=== PATIENT | male | born 2000 ===

== ENCOUNTER 2025-02-01 12:02 | Outpatient (CLI) | payer BC ==
[2025-02-01 12:46] LABS: Albumin 4.7 g/dL (3.2-4.8); Alkaline Phosphatase 95 U/L (46-116); Anion Gap 8 (5-15); BUN/Creatinine Ratio 12.1 (10.0-20.0); Blood Urea Nitrogen 13 mg/dL (9-23); Calcium 9.5 mg/dL (8.7-10.4); Carbon Dioxide 27 mmol/L (20-31); Chloride 104 mmol/L (98-107); Cholesterol 153 mg/dL (< 200); Glucose 91 mg/dL (74-106); HDL Cholesterol 46 mg/dL (40-59); Potassium 4.3 mmol/L (3.5-5.1); Sodium 139 mmol/L (136-145); Total Protein 7.5 g/dL (5.7-8.2); Triglycerides 88 mg/dL (< 150)
[2025-02-01 12:50] LABS: Alanine Aminotransferase 157 U/L (7-40); Bilirubin, Total 1.7 mg/dL (0.2-1.0)
[2025-02-01 13:41] LABS: Hematocrit 43.2 % (41.0-53.0); Hemoglobin 15.1 g/dL (13.5-17.5); Mean Corpuscular Hemoglobin 30.7 pg (28.0-32.0); Mean Corpuscular Volume 88.0 fL (80.0-100.0)
[2025-02-01 14:18] LABS: Hepatitis A Total Antibody Positive (Negative); Hepatitis B Surface Antigen Negative (Negative); Hepatitis C Antibody Negative (Negative)
[2025-02-01 17:03] LABS: Total Cells Counted 100.0 (100)
[2025-02-01 17:04] LABS: RBC Morphology Normal
== END 2025-02-01 17:00 | disposition home or self-care (01) ==
LOC: LAB 12:02
PROVIDERS: ATTEND Licensed Practical Nurse
DX: E55.9 Vitamin D deficiency, unspecified (principal); Z13.220 Encounter for screening for lipoid disorders; Z13.29 Encounter for screening for other suspected endocrine disorder; Z00.01 Encounter for general adult medical examination with abnormal findings; Z13.1 Encounter for screening for diabetes mellitus
CPT/HCPCS: 36415; 80053; 80061; 82306; 83036; 84443; 85007; 85027; 86704; 86706; 86708; 86803; 87340